=== PATIENT | male | born 1935 | race Caucasian/White ===

== ENCOUNTER 2018-08-06 07:53 | Inpatient (IN) | payer MEDICARE, OTHER ==
[~2018-08-06] VITALS: Ht 170.2 cm; Wt 148.9 kg
[~2018-08-06 07:53] MED LIST: ASPIRIN81 M2 PO; BENAZEPRIL HCL40 MG PO; CEPACOL SORE T1 EAC2 MM; HYDROCODON-ACE1 EAC8 PO; LEVEMIR SUBQ; LOVASTAT10 PO; MULTI-VITAMIN1 EAC5 PO; NEURONTIN 300M300 M2 PO; NORVASC5 M1 PO; NOVOLOG100 UNIT/1 SUBQ; SAW PALMETTO500 MG PO; TRAVATAN Z2.5 ML OPHTHALMIC
[2018-08-06 07:58] VITALS: BP 116/61
[2018-08-06] MEDS ORDERED: OXYCONTIN10 M1 PO (08:20)
[2018-08-06] MEDS ORDERED: LOTENSIN40 MG PO (08:21)
[2018-08-06] MEDS ORDERED: LOVASTATIN 20 M20 MG PO (08:21)
[2018-08-06] MEDS ORDERED: COLACE100 MG PO (08:21)
[2018-08-06] MEDS ORDERED: LATANOPROST 0.2.5 ML OPHTHALMIC (08:21)
[2018-08-06] MEDS ORDERED: METFORMIN HCL500 MG PO (08:21)
[2018-08-06] MEDS ORDERED: FLOMAX0.4 MG PO (08:22)
[2018-08-06] MEDS ORDERED: HUMALOG100 UNIT/1 SUBQ (08:22)
[2018-08-06] MEDS ORDERED: HYDROCHLOROTHIA25 M2 PO (08:22)
[2018-08-06] MEDS ORDERED: NEURONTIN600 MG PO (08:22)
[2018-08-06] MEDS ORDERED: PROSCAR 5MG TABL5 MG PO (08:22)
[2018-08-06] MEDS ORDERED: ASPIRIN81 M2 PO (08:23)
[2018-08-06] MEDS ORDERED: LUTEIN-ZEAXANT1 EAC1 PO (08:23)
[2018-08-06] MEDS ORDERED: COENZYME Q10100 MG PO (08:23)
[2018-08-06] MEDS ORDERED: UNICOMPLEX M TA1 TA1 PO (08:23)
[2018-08-06] MEDS ORDERED: LEVEMIR SUBQ (08:23)
[2018-08-06 08:29] LABS: BE 2.5 mmol/L (-2 to +3); PCO2 56.7 mmHg (35.0-45.0); PO2 63.4 mmHg (75.0-100.0); pH 7.341 (7.340-7.450)
[2018-08-06 08:39] LABS: HEMATOCRIT 49.1 % (42.0-52.0); HEMOGLOBIN 15.9 gm/dL (14.0-18.0); MCH 29.6 pg (26.0-34.0); MCHC 32.3 g/dL (28.0-37.0); MCV 91.6 fL (80.0-100.0); MPV 8.6 fl. (7.2-11.1); NUCLEATED RBCS 0 /100WBC; PLATELET COUNT* 228 thou/uL (150-400); RBC 5.36 mil/uL (4.50-6.00); RDW-CV 15.3 % (10.5-14.5); WBC 12.9 thou/uL (4.0-11.0)
[2018-08-06 08:48] LABS: ANION GAP 6 mmol/L (7-16); BUN 25 mg/dL (7-18); CHLORIDE 100 mmol/L (98-107); CO2 32 mmol/L (21-32); CREATININE 1.3 mg/dL (0.6-1.3); GLUCOSE 144 mg/dL (70-99); POTASSIUM 4.1 mmol/L (3.5-5.1); SODIUM 138 mmol/L (136-145)
[2018-08-06 08:51] LABS: APTT 32.2 Seconds (25.0-31.3); INR 1.1; PROTIME 11.4 Seconds (9.20-11.50)
[2018-08-06 08:59] LABS: ALKALINE PHOSPHATASE 59 U/L (46-116); LIPASE 44 U/L (73-393); MAGNESIUM 1.6 mg/dL (1.8-2.4); NT-PRO BRAIN NAT PEPTIDE 1763 pg/mL (<300); SGOT 16 U/L (15-37); SGPT 15 U/L (30-65); TOTAL BILIRUBIN 0.8 mg/dL (<0.1-1.0); TROPONIN-I LEVEL <0.06 ng/mL (<0.06)
[2018-08-06 10:13] LABS: ABSOLUTE LYMPHOCYTES 0.9 thou/uL (0.8-5.3); ABSOLUTE MONOCYTES 0.9 thou/uL (0.0-1.2); ABSOLUTE NEUTROPHILS 11.1 thou/uL (1.6-8.1)
[2018-08-06 10:15] LABS: MICROCYTES 1+
[2018-08-06 10:16] LABS: PLATELET ESTIMATE ADEQUATE
[2018-08-06 10:29] VITALS: BP 117/50
[2018-08-06 10:40] VITALS: BP 133/65
--- NOTE | 2018-08-06 11:19 | EKG ---
[place] [address] ELECTROCARDIOGRAM REPORT Name: HUBER BETANCOURT Room: [address] ADM IN M.R.#: [id number] Admission: 08/06/18 Attend Phys: Allison Amaro Discharge: Date of : 31 Report #: [id number] THIS REPORT FOR: //name// [facility] ED Test Date: 2018-08-06 Test Time: 08:48:45 Pat Name: HUBER BETANCOURT Department: Room: [facility] Gender: M Director Of Corporate Strategy: : 1935 Requested By: Chester Rosas Order Number: [id number] MD: Saroj Buckley Measurements Intervals [place] Rate: 83 P: 57 [place]: 171 QRS: 59 QRSD: 99 T: 38 QT: 365 QTc: 429 Interpretive Statements Sinus rhythm Borderline low voltage, extremity leads No previous ECG available for comparison Electronically Signed On 08-06-2018 11:19:02 CDT by Saroj Buckley [email or web address] <ELECTRONICALLY SIGNED> By: Saroj Buckley MD, [facility] 08/06/18 1119 7 7 Saroj Buckley MD, [facility] /EPI
[2018-08-06 12:00] VITALS: BP 119/60
[2018-08-06 14:00] VITALS: BP 131/73
--- NOTE | 2018-08-06 17:23 | 2DMMODE ---
[place] [address] 2 D/M-MODE ECHOCARDIOGRAM Name: HUBER BETANCOURT Room: [address] ADM IN [facility]#: [id number] Admission: 08/06/18 Attend Phys: Jossy Martinez Discharge: Date of : 31 Date of Service: 08/06/18 1722 Report #: [id number] THIS REPORT FOR: //name// APPROVED REPORT Study performed: 08/06/2018 15:47:06 EXAM: Comprehensive 2D, Doppler, and color-flow Echocardiogram Patient Location: In-Patient Room #: [facility] Status: routine BSA: 2.63 HR: 74 bpm BP: 117/50 mmHg Rhythm: NSR Other Information Technically limited study due to body habitus, poor endocardial definition. Indications Respiratory failure Echo Enhancing Agent Indication: Endocardial border delineation Agent(s) / Amount(s) Used: Optison 3 cc 2D Dimensions IVSd: 13.27 (7-11mm) LVOT Diam: 20.70 (18-24mm) LVDd: 55.15 mm PWd: 13.00 (7-11mm) Ascending Ao: 37.22 (22-36mm) LVDs: 38.65 (25-40mm) Aortic Root: 36.33 mm Aortic Valve AoV Peak Nino.: 1.83 m/s AO Peak Gr.: 13.40 mmHg LVOT Max P.26 mmHg AO Mean Gr.: 7.12 mmHg LVOT Mean P.72 mmHg LVOT Max V: 1.35 m/s AO V2 VTI: 34.31 cm LVOT Mean V: 0.89 m/s JIAN (VTI): 2.98 cm2 LVOT V1 VTI: 30.32 cm Mitral Valve E/A Ratio: 1.01 MV Decel. Time: 267.12 [place] [address] 2 D/M-MODE ECHOCARDIOGRAM Name: HUBER BETANCOURT Room: [address] ADM IN M.R.#: [id number] Admission: 08/06/18 Attend Phys: Jossy Martinez Discharge: Date of : 31 Date of Service: 08/06/18 1722 Report #: [id number] MV E Max Nino.: 1.41 m/s MV PHT: 77.46 ms MVA (PHT): 2.84 cm2 TDI E/Lateral E': 14.10 E/Medial E': 14.10 Medial E' Nino.: 0.10 m/s Lateral E' Nino.: 0.10 m/s Pulmonary Valve PV Peak Nino.: 0.99 m/s PV Peak Gr.: 3.95 mmHg Tricuspid Valve RAP Estimate: 15.00 mmHg TR Peak Gr.: 56.36 mmHg RVSP: 71.00 mmHg PA Pressure: 71.00 mmHg Left Ventricle The left ventricle is normal size. There is normal LV segmental wall motion. Mild concentric left ventricular hypertrophy. Left ventricular systolic function is normal. The left ventricular ejection fraction is within the normal range. LVEF is 55-60%. Grade III - reversible restrictive diastolic dysfunction. Right Ventricle The right ventricle is normal size. The right ventricular systolic function is normal. Atria The left atrium size is normal. The right atrium size is normal. Aortic Valve Mild aortic valve sclerosis. The aortic valve is not well visualized. No aortic regurgitation is present. There is no aortic valvular stenosis. Mitral Valve There is mitral annular calcification. There is no mitral valve regurgitation noted. No evidence of mitral valve stenosis. Tricuspid Valve The tricuspid valve is normal in structure. Trace tricuspid regurgitation. Severe pulmonary hypertension[place] [address] 2 D/M-MODE ECHOCARDIOGRAM Name: HUBER BETANCOURT Room: [address] IN [facility]#: [id number] Admission: 08/06/18 Attend Phys: Jossy Martinez Discharge: Date of : 31 Date of Service: 08/06/18 1722 Report #: [id number] The pulmonary valve is normal in structure. There is no pulmonic valvular regurgitation. Great Vessels The aortic root is normal in size. IVC is dilated and collapses <50% with inspiration. Pericardium There is no pericardial effusion. <Conclusion> There is normal LV segmental wall motion. LVEF is 55-60%. Mild aortic valve sclerosis. No aortic regurgitation is present. There is no aortic valvular stenosis. No evidence of mitral valve stenosis. There is no mitral valve regurgitation noted. Grade III - reversible restrictive diastolic dysfunction. <ELECTRONICALLY SIGNED> By: Saroj Buckley MD, FACC 08/06/181721 21 21 Saroj Buckley MD, FACC /INF
--- NOTE | 2018-08-06 19:07 | NUR ---
PATINET RESTING IN BED. PATIENT IS BEDREST FO RHTE EVENING. WOUNDS TO GROIN DOCUMENTED, AND PORDERS RECEIVED. VITAL SIGNS STQABLE AND PATINET IN [place] APPARENT SIGNS OF DISTRESS. HOURLY ROUNDING COMPLETED FOR PATIENT SAFETY.
[2018-08-06 20:00] VITALS: BP 124/59
[2018-08-07] VITALS: BP 152/86
[2018-08-07 04:00] VITALS: BP 153/78
--- NOTE | 2018-08-07 05:21 | NUR ---
PATIENT RESTED IN BED, NO ACUTE CHANGES. PATIENT COMPLAIN OF PAIN, DOCTOR NOTIFIED, SEE ORDERS. FALL PRECAUTIONS IN PLACE, CALL LIGHT WITH IN REACH, HOURLY ROUNDING OBSERVED, BED ALARM ON. DOCTOR NOTIFIED OF PATIENT'S BLOOD SUGAR, SEE ORDERS. DOCTOR NOTIFED OF PATIENT REQUEST FOR BIOFREEZE, SEE ORDERS.
[2018-08-07 08:15] VITALS: BP 123/73
--- NOTE | 2018-08-07 11:34 | NUR ---
RECEIVED REPORT FROM ELLI AND ASSUMED CARE OF PT @ 9711.PT IS A/O X4,VSS,TRACING SR ON THE MONITOR.LUNG SOUNDS ARE SLIGHTLY WHEEZY.IV PATENT AND SALINE LOCKED.PT IS CALM AND COOPERATIVE WITH C/O PAIN IN BACK.MEDICATIONS GIVEN WITH RELIEF.PT IS UP WITH MAX ASSIST TO BSC.PT LEFT RESTING IN BED WITH CALL LIGHT AND FALL PRECAUTIONS IN PLACE. WILL CONTINUE TO MONITOR.
[2018-08-07 11:41] VITALS: BP 127/64
--- NOTE | 2018-08-07 14:17 | NUR ---
MET WITH PT, DTR/DEMOND AND SON/HUBER ESCUDERO TO DISCUSS HOME SITUATION/DC PLANNING. PT UP IN CHAIR. STATES HE DOES WELL AT HOME. DEMOND STATES SHE HAS RECENTLY MOVED IN WITH PT TO ASSIST HIM THE MOST HE CAN DO IS AMBULATE A SHORT DISTANCE IN THE HOME AND ASSIST SOME WITH BATH AND DRESSING. HE IS ABLE TO WARM UP FOOD IN [place]. RECENTLY WENT ON HONOR FLIGHT TRIP TO [place], [place] BUT CAME HOME 'SICK' PER SON. SON/HUBER IS DPOA, HAVE ASKED FOR COPY. PT USES WALKER WITH SEAT, HAS WALKIN SHOWER WITH SEAT AND GRAB BARS. DTR AND GRANDDTR ASSIST PT WITH BATHING AND DRESS AND DTR STATES THAT HIS RASH 'GOT AWAY' FROM THEM. ANOTHER GRANDDTR CARES FOR PT'S LEGS AND PUTS ON HIS COMPRESSION STOCKINGS. DTR ASKING FOR ASSIST WTIH BATHING AT HOME. PT HASN'T HAD HH OR BEEN TO SNF. DTR NOT INTERESTED IN PT GOING TO FACILITY, WANT TO TAKE HIM HOME. EXPLAINED HH AND HOMEBOUND STATUS. DTR STATES THEY HAD AN EVAL A FEW MONTHS AGO BUT PT WASN'T HOMEBOUND PER THEM. OFFERED A LIASON TO COME TALK WTIH HER FROM HH HERE, DISCUSSED OPTIONS AND THEY WERE FAMILIAR WITH [facility] ([facility]) CALL TO [facility] AND SHE WILL PLAN TO MEET WITH PT AND DTR/DEMOND GUAMAN AT 1PM PER DTR REQUEST. FAXED REFERRAL OVER TO [facility] OFFICE. WILL FOLLOW
[2018-08-07 16:31] VITALS: BP 147/74
--- NOTE | 2018-08-07 18:29 | NUR ---
VSS,CARDIAC MONITORING IN PLACE WITH NO CHANGES.PT REMAINS ON 5L O2 NC.PAIN MANAGED WELL WITH PO MEDICATIONS.IV PATENT AND SALINE LOCKED.IV ANTIBIOTICS GIVEN.ISOLATION MAINTAINED FOR PENDING FLU SWAB RESULTS.PT RECEIVED MAG CITRATE AND HAD LARGE BM.US VENOUS DOPPLER COMPLETED. PT INFORMED OF PLAN OF CARE AND COMMUNICATES UNDERSTANDING.HOURLY ROUNDING COMPLETED FOR PT SAFETY.CALL LIGHT AND FALL PRECAUTIONS IN PLACE.WILL CONTINUE TO MONITOR FOR DURATION OF SHIFT.
[2018-08-07 20:00] VITALS: BP 144/84
[2018-08-08] VITALS: BP 143/75
[2018-08-08 04:00] VITALS: BP 136/73
--- NOTE | 2018-08-08 04:17 | NUR ---
ASSUMED PT CARE AT 1930. ASSESSMENT COMPLETED CHARTED. ABLE TO MAKE NEEDS KNWON. PT UP MOST OF THE NIGHT, CANT GET COMFORTABLE, GAVE PAIN MEDICATION PER MAR FOR CHRONIC BACK PAIN. UP WITH 2 TO BSC. URINATES FREQUENTLY WITH 150-200 OUT PER TIME. WILL CONTINUE TO MONITOR.
[2018-08-08 05:13] LABS: HEMATOCRIT 51.2 % (42.0-52.0); HEMOGLOBIN 16.1 gm/dL (14.0-18.0); MCH 29.4 pg (26.0-34.0); MCHC 31.4 g/dL (28.0-37.0); MCV 93.5 fL (80.0-100.0); MPV 8.6 fl. (7.2-11.1); RBC 5.47 mil/uL (4.50-6.00); RDW-CV 15.2 % (10.5-14.5); WBC 13.3 thou/uL (4.0-11.0)
[2018-08-08 05:31] LABS: ALBUMIN 2.9 g/dL (3.4-5.0); CALCIUM 8.5 mg/dL (8.5-10.1); CREATININE 1.3 mg/dL (0.6-1.3); POTASSIUM 4.6 mmol/L (3.5-5.1); TOTAL BILIRUBIN 0.4 mg/dL (<0.1-1.0); TOTAL PROTEIN 6.6 g/dL (6.4-8.2)
[2018-08-08 08:00] VITALS: BP 110/65
--- NOTE | 2018-08-08 08:20 | CON ---
[address] [address] CONSULTATION Name: HUBER BETANCOURT Room: [address] ADM IN M.R.#: [id number] Admission: 08/06/18 Attend Phys: Allison Amaro Discharge: Date of : 33 Report #: [id number] THIS REPORT FOR: //name// CC: Jossy Castillo DATE OF SERVICE: 08/07/2018 REQUESTING PHYSICIAN: Dr. Martinez. REASON FOR CONSULTATION: Pneumonia, hypoxemia. DISCUSSION: The patient is a pleasant 83-year-old man who was admitted after presenting to the Emergency Department the morning of 08/06/2018. He has actually gotten ill about a week ago. He had gone on an [place] [facility] to [facility]. Within a day or so after that, he developed what he thought was a cold. He had upper airway congestion. He has been getting progressively more short of breath. He had also developed issues with fungal infection in the genital area. He had had some bleeding from that area as well and seen in the Emergency Department. He was noted to be hypoxic. He was placed on supplemental oxygen. Initial chest x-ray did show some interstitial infiltrates. This followed up with a CT scan of his chest, which revealed bilateral infiltrates. He has been on antibiotics to cover for possible pneumonia. He has had additional evaluation done. Blood gases have also shown some hypercapnia. He is a former smoker quitting several years ago. Had been at least a pack a day smoker in the past. He states that he was told in the past that he may have some COPD. He was on some inhalers for a period of time, but has been off those for a long time. He does not recall having any PFTs done. 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 He does have issues with chronic lymphedema. He does use support stockings and wraps at home. This has been a longstanding issue for him. He also has a history of sleep apnea. He had a UPPP done by Dr. Huber Hummel years ago. He cannot recall if he had a sleep study done after that surgery. He does note that it was beneficial for him. He notes he had been on CPAP prior to that surgery. At home, he was having some cough, but only scant amounts of mucus. Here in the hospital, he has noted some "pink" secretions. No bright red blood. He is not having any actual chest pain. PAST MEDICAL HISTORY: Is as noted above. Also, [place] [address] CONSULTATION Name: HUBER BETANCOURT Room: [address] IN .R.#: [id number] Admission: 08/06/18 Attend Phys: Allison Amaro Discharge: Date of : 33 Report #: [id number] pneumonia and prior viral infections. He has had the Pneumovax and I believe also the Prevnar 13 in the past based on his description. He has a history of diabetes mellitus, the lymphedema, chronic back problems. He sustained fractures of the right ankle as well as tibial fracture. BPH. HOME MEDICATIONS: Insulin, amlodipine, Lotensin, gabapentin, baby aspirin, multivitamins, p.r.n. oxycodone, docusate, eye drops, metformin, hydrochlorothiazide, Proscar, Flomax. He has no inhalers, breathing treatments or O2 at home. SOCIAL HISTORY: Former smoker as noted. 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 Served in the [employer]. FAMILY HISTORY: Reviewed and unremarkable. REVIEW OF SYSTEMS: A 12-point ROS was done. Note positives as above. He denies any recent falls. He had lost some weight, but has gained additional weight back. He has a chronic lower extremity edema. Had developed the yeast infection in his genital area. He was using a vitamin E cream at home. He denies any difficulty swallowing. He has not had any nausea or vomiting. Denies any diarrhea. Has a chronic lower extremity edema is noted. PHYSICAL EXAMINATION: GENERAL: An obese man. He is resting in bed. HEENT: Head is normocephalic. Sclerae nonicteric. Mucous membranes do look moist. NECK: Large, but supple. No JVD is noted. HEART: Heart tones are distant, but appear regular. LUNGS: Reveal breath sounds to be mildly diminished in part due to his large body habitus. Few faint crackles are heard. No wheezing. Excursion is equal. ABDOMEN: Very obese, but soft. Does not appear to have any guarding or rebound tenderness. GENITOURINARY: Area was not evaluated. EXTREMITIES: Lower extremities, he does have edema noted. SCDs in place. NEUROLOGIC: He is alert and oriented x 3. Moving all extremities. LABORATORY AND X-RAY FINDINGS: Chest x-ray does show some mild cardiomegaly and prominence of interstitial markings. CT angiogram done of his chest was negative for PE. He does have bilateral infiltrates. These are perihilar primarily. No significant pleural effusions noted. No adenopathy. Echocardiogram done yesterday was technically difficult given his body habitus. Appears to have LVH. Systolic function normal with an EF of 55-60%. Did have grade 3 diastolic dysfunction. RV was normal. No mitral regurgitation was noted. He is also thought to have severe pulmonary hypertension with an estimated PA pressure of 71 mmHg. On his chemistry yesterday, bicarbonate is 32, BUN 25, creatinine 1.3, potassium is 4.1. [place] [address] CONSULTATION Name: HUBER BETANCOURT Room: [address] IN M.R.#: [id number] Admission: 08/06/18 Attend Phys: Allison Amaro Discharge: Date of : 33 Report #: [id number] Transaminases unremarkable. Magnesium 1.6. Albumin 3.0. ProBNP 1763. White blood cell count 12,900, hemoglobin 15.9, hematocrit 49.1, platelets are normal. Arterial blood gases done yesterday on 4 liters, she had a pH of 7.34, pCO2 of 57, pO2 of 63, bicarbonate is 30 with a saturation of 88%. Carboxyhemoglobin was 4.4%. Blood cultures have been sent. Urine culture for Legionella antigen and Strep pneumonia antigen is pending. IMPRESSION: 1. Acute respiratory failure superimposed on chronic respiratory failure. 2. Bilateral infiltrates, suspect pneumonia. May have started with a viral infection. 3. Underlying chronic obstructive pulmonary disease, severity unknown. He has not been on any treatment for that recently. 4. Hypercapnia. Some of this does appear chronic. He does have a history of sleep apnea, though has had uvulopalatopharyngoplasty. It is possible it still may not have completely corrected his problem. Could have a component of obesity hypoventilation syndrome as well as underlying chronic obstructive pulmonary disease. 5. Recent diagnosis of diabetes mellitus. 6. Probable chronic kidney disease. 7. Morbid obesity. 8. History of lymphedema. It is possible some of this could be related to his pulmonary hypertension. 9. Pulmonary hypertension, noted on echocardiogram. Could be related to his diastolic dysfunction. Also from chronic obstructive pulmonary disease and perhaps untreated obstructive sleep apnea. Does not appear to have pulmonary embolism. RECOMMENDATIONS: 1. Continue antibiotics and nebulizer treatments. 2. Follow up chest x-ray tomorrow. 3. Should be able to begin decreasing his IV Solu-Medrol. 4. Follow up blood gases tomorrow. 5. We will check TSH. 6. Reassess O2 needs prior to discharge. May need O2 at home at least at night. 7. Consider followup sleep study in the future once he is over this acute event. 8. May also need full PFTs once he is over this acute event. 9. We will also check respiratory viral panel. <ELECTRONICALLY SIGNED> By: Lizzy Mayes MD 08/08/18 0820 1125 [id number] Mayes MD /nt
[2018-08-08 08:39] LABS: BE 4.1 mmol/L (-2 to +3); HCO3 33.2 mmol/L (22.0-26.0); PO2 77.6 mmHg (75.0-100.0); pH 7.303 (7.340-7.450)
--- NOTE | 2018-08-08 08:42 | NUR ---
RE: insulin glulisine. Request from RN for insulin gluslisine entered by night pharmacist. Communicated it is not available at this facility. No protocol substitute (informed that lispro insulin is closest available option, but physician would need to approve. RN acknowledged).
[2018-08-08 08:44] LABS: PCO2 68.5 mmHg (35.0-45.0)
[2018-08-08 11:35] VITALS: BP 131/55
--- NOTE | 2018-08-08 12:06 | CON ---
[address] [address] CONSULTATION Name: HUBER BETANCOURT Room: [address] IN M.R.#: [id number] Admission: 08/06/18 Attend Phys: Allison Amaro Discharge: Date of : 33 Report #: [id number] THIS REPORT FOR: //name// CC: Jossy Castillo DATE OF SERVICE: 08/07/2018 INFECTIOUS DISEASE CONSULTATION ATTENDING PHYSICIAN: Dr. Martinez. REASON FOR EVALUATION: Extensive inflammatory eruption involving the underside of the large pannus extending to the perineal area in addition to respiratory failure secondary to exacerbation of COPD and probable lower respiratory tract infection. HISTORY OF PRESENT ILLNESS: Chart reviewed, patient examined. This is an 83-year-old, with history of diabetes mellitus, also a smoker, certainly raises question of COPD, was admitted with progressive dyspnea with productive cough, congestion. He did note he acquired pneumonia on a [place] [facility], perhaps more worrisome to him. He developed inflammatory, burning type painful rash with pruritus involving his perineal area and to side of his large pannus with associated odor. It is not clear if he has had significant fevers. Denies other GI related complaints. He was empirically started on therapy with levofloxacin for suspected respiratory tract infection as well as given a dose of ceftriaxone and fluconazole as well as topical antifungal. His initial oxygen requirements were 8 liters, now down to 5 liters per nasal cannula. He is lucid. ALLERGIES: TRAMADOL. CURRENT MEDICATIONS: Include methylprednisolone 40 mg q. 12, furosemide, insulin, tamsulosin, finasteride, hydrochlorothiazide, multivitamin, oxycodone, gabapentin, aspirin, levofloxacin, ipratropium and albuterol inhaler. PAST MEDICAL HISTORY: Diabetes mellitus, likely some degree of chronic obstructive pulmonary disease, pulmonary hypertension, obstructive sleep apnea, lymphedema. SOCIAL HISTORY: Former smoker, occasional ethanol. FAMILY HISTORY: Noncontributory. REVIEW OF SYSTEMS: [place] [address] CONSULTATION Name: HUBER BETANCOURT Room: [address] IN M.R.#: [id number] Admission: 08/06/18 Attend Phys: Allison Amaro Discharge: Date of : 33 Report #: [id number] PHYSICAL EXAMINATION: GENERAL: He is alert. He is in mild to moderate distress. He is morbidly obese, appears somewhat chronically ill. VITAL SIGNS: Temperature 97.5, pulse 72, respirations 20, blood pressure 127/64. SKIN: Warm. Multiple nevi skin lesions including the extent of the scalp. NECK: Supple. LUNGS: Some wheezes with scattered coarse breath sounds. HEART: Regular. I do not appreciate any murmur, although it is distant. ABDOMEN: Obese, has extensive pannus. There are no peritoneal signs. On exam, there is no significant pain. It was lifted to the underside showed extensive erythrodermic type eruptions certainly consistent with candidiasis. There were satellite lesions extending throughout the course of the perineal area as well as the underside of the pannus. I do not appreciate any ulcerations at this point, no bullous lesions. GENITOURINARY: Deferred. RECTAL: Deferred. LABORATORY DATA: His recent glucose of 427. TSH 1.008. Blood cultures sterile thus far. Echo, no significant dysfunction, EF of 55-60%. CTA of the chest PE protocol, patchy perihilar infiltrates. CBC: White count of 12.9, H and H 15.9 and 49.1, platelets of 228. Electrolytes: Sodium 138, potassium 4.1, chloride 100, bicarbonate is 32, anion gap of 6, BUN and creatinine 25 and 1.3, glucose of 144. LFTs unremarkable. Albumin of 3.0, total protein 7.0. Estimated GFR of 52. Lactic acid 1.4. PT of 11.4, INR 1.1. ABGs: pH 7.341, pCO2 of 56.7, pO2 of 63.4 on 4 liters. ASSESSMENT: Probable lower respiratory tract infection in the setting of underlying chronic obstructive pulmonary disease. I think it is reasonable to continue empiric antibacterial therapy to see if resistant parameters have improved in terms of the oxygen requirements. I do not think there is any sputum forthcoming. As long as he is on the antibacterial certainly at risk for exacerbation of any sort of candidiasis. We will continue fluconazole on a daily basis, local care and topical antifungal as well. Wound care is following. Discussed with the patient's family. <ELECTRONICALLY SIGNED> By: Jet Salgado MD 08/08/18 1206 1531 [id number] Salgado MD /hernandez
--- NOTE | 2018-08-08 13:12 | NUR ---
PT ALERT AND ORIENTED. VSS ON 5L AT START OF SHIFT. PLACED ON BIPAP AT APPROX 1100 AND TOLERATING WELL. INNER THIGHS/PANNUS/SYDNIE AREA RED AND MOIST- POWDER APPLIED PER EMAR. X1 BM THIS SHIFT, UO AFEQUATE. CALL LIGHT IN REACH. PT AND FAMILY EDUCATED ON SAFETY AND PLAN OF CARE. PLEASE SEE ASSESSMENT FOR ADDITIONAL INFORMATION. WILL CONTINUE TO MONITOR.
--- NOTE | 2018-08-08 13:34 | NUR ---
[facility] WITH [facility] ([facility]) HER TO SEE THE PATIENT WITH [facility] WAITER/WAITRESS TAVERN. [facility] MET WITH THE PATIENT AND DTR AND INFORM THAT [facility] IS ABLE TO ACCEPT THR PATIENT AT D/C FOR HH SERVICES. ORDERS FOR HH TO INCLUDE A WAITER/WAITRESS TAVERN WILL NEED TO BE FAXED TO [facility] AT D/C. CM WILL REMAIN AVAILABLE TO ASSIST AND FOLLOW NEEDED.
[2018-08-08 16:23] VITALS: BP 140/70
--- NOTE | 2018-08-08 18:32 | NUR ---
PT TOLERATING BIPAP THROUGHOUT SHIFT. DENIES CP AND SOA. ASSESSMENT REMAINS UNCHANGED THROUGHOUT SHIFT. WILL CONT TO MONITOR
[2018-08-08 20:00] VITALS: BP 147/72
[2018-08-08 21:13] LABS: GLYCOHEMOGLOBIN (HGB A1C) 7.6 % (4.8-5.6)
[2018-08-09] VITALS (7 sets, daily range): BP systolic 137–155; BP diastolic 63–88
--- NOTE | 2018-08-09 01:58 | NUR ---
ASSUMED CARE OF PATIENT AT 1900. VSS, AFEBRILE. UP TO BSC SEVERAL TIMES TO VOID, IS BECOMING LESS DEPENDENT. LASIX GIVEN, URINE OUPUT ADEQUATE. CALLS OUT APPROPRIATELY. DENIES PAIN. DOES STATE HE CAN'T TOLERATE THE BIPAP. ON 6L NASAL CANNULA. PROGRESSING SLOWLY TOWARDS POC GOALS.
[2018-08-09 05:07] LABS: ALBUMIN 2.9 g/dL (3.4-5.0); CALCIUM 9.2 mg/dL (8.5-10.1); CREATININE 1.2 mg/dL (0.6-1.3); TOTAL BILIRUBIN 0.4 mg/dL (<0.1-1.0)
[2018-08-09 10:27] LABS: PCO2 64.8 mmHg (35.0-45.0)
[2018-08-09 10:28] LABS: BE 7.3 mmol/L (-2 to +3); HCO3 35.8 mmol/L (22.0-26.0); PO2 84.1 mmHg (75.0-100.0)
--- NOTE | 2018-08-09 12:03 | NUR ---
RECEIVED REPORT FROM DEBORAH AND ASSUMED CARE OF PT @ 4290.PT A/O X4,VSS,TRACING SB ON THE MONITOR.ASSESSMENT CHARTED.IV REMOVED DUE TO INFILTRATION.NEW IV INSERTED IN RIGHT HAND.IV ANTIBIOTICS GIVEN.ISOLATION REMOVED PER DOCTOR ORDERS.PT IS CALM AND COOPERATIVE WITH C/O PAIN IN BACK-RELIEF GIVEN WITH MEDICATIONS.PT IS UP WITH ONE ASSIST TO BSC.PT LEFT RESTING IN BED WITH CALL LIGHT AND FALL PRECAUTIONS IN PLACE.WILL CONTINUE TO MONITOR.
--- NOTE | 2018-08-09 12:35 | NUR ---
Nutrition: Pt admitted with respiratory failure. Assessed for BMI 55.9. Pt doesn't tolerate bipap; on 6L NC. RX: insulin, solumedrol, MVI. Labs: BG 299, albumin 2.9. Wt: 357#. Heart Healthy diet with a CHO count. Pt is 83 y/o. No nutrition interventions needed at this time.
--- NOTE | 2018-08-09 13:34 | NUR ---
CONTINUE TO FOLLOW, MET WITH PT'S SON/HUBER. THEY ARE AGREEABLE TO GO HOME WITH [facility] AT OR. DISCUSSED TRILOGY, PT IS AGREEABLE. CALLED AND FAXED REFERRAL TO [facility]. NO DC DATE KNOWN YET
--- NOTE | 2018-08-09 17:11 | NUR ---
VSS,CARDIAC MONITORING IN PLACE WITH NO CHANGES.PT REMAINS ON 5L O2 NC AND BIPAP WHILE SLEEPING.PT PROGRESSING TOWARDS GOALS.PAIN MANAGED WELL WITH PO MEDICATIONS.NEW IV INSERTED.IV ANTIBIOTICS GIVEN.PT HAS BEEN UP TO BSC MULTIPLE TIMES THIS SHIFT WITH ONE ASSIST.BREATHING TREATMENTS GIVEN.HOURLY ROUNDING COMPLETED FOR PT SAFETY.CALL LIGHT AND FALL PRECAUTIONS IN PLACE.WILL CONTINUE TO MONITOR.
--- NOTE | 2018-08-09 22:25 | NUR ---
ASSUMED PT CARE AOX4 .SBRADY. 8 RUNS OF VTACH. NO CARDIO CONSULT. MAG LEVEL 23 . MAG LAB ORDERED . AWAITNG LEVEL BACK. THEN WILL CONTACT PHYSICIAN.
[2018-08-10] VITALS: BP 148/77
[2018-08-10 02:06] LABS: ADENOVIRUS Negative (Negative); INFLUENZA A Negative (Negative); INFLUENZA B Negative (Negative); METAPNEUMOVIRUS Negative (Negative); PARAINFLUENZA 1 Negative (Negative); PARAINFLUENZA 2 Negative (Negative); PARAINFLUENZA 3 Negative (Negative); RHINOVIRUS Negative (Negative); RSV A Negative (Negative); RSV B Negative (Negative)
[2018-08-10 04:00] VITALS: BP 144/70
[2018-08-10 05:35] LABS: CALCIUM 9.7 mg/dL (8.5-10.1); CREATININE 1.1 mg/dL (0.6-1.3); POTASSIUM 4.1 mmol/L (3.5-5.1)
--- NOTE | 2018-08-10 07:35 | NUR ---
PT CARDIAC RYTHM HAD BEEN STABLE SINCE THE EIGHT RUNS OF VTACH LAST NIGHT. PT IS STABLE, ADN VSS.MAG LEVEL WAS 2.2. CARDIO CALLED THIS AM. MESSAGE LEFT TO ANSWERING SERVICE.
[2018-08-10 08:00] VITALS: BP 153/72
[2018-08-10 12:00] VITALS: BP 140/67
--- NOTE | 2018-08-10 14:01 | NUR ---
PT PLACED ON BIPAP FOR A NAP
[2018-08-10 16:00] VITALS: BP 141/70
--- NOTE | 2018-08-10 18:36 | NUR ---
vss, asusmed care in the am, assessment performed and charted, FALL PRECAUTINS IN PLACE AND CALL LIGHT IN REACH, PT IS A&O4 AND UP WITH ONE TO BSC, HE IS TRACING SR ON THE MONITOR, WEAR 4L NC AND STATES PAIN IN HIS LOWER BACK, PT IS TO WEAR BIPAP AT HS, HE HAS BEEN UP IN CHAIR FOR A BIT, HOURLY ROUNDS COMPLETED AND WILL FOLLOW WITH P[DEMARIO OF CARE. BS HAVE COME DOWN AND WILL FOLLOW WITH ORDERS,
[2018-08-11] VITALS (7 sets, daily range): BP systolic 118–140; BP diastolic 47–79
--- NOTE | 2018-08-11 06:55 | NUR ---
RECEIVED REPORT AND ASSUMED CARE AT 1930. VSS. CARDIAC MONITORING IN PLACE. ASSESSMENT COMPLETED CHARTED. DISCUSSED PLAN OF CARE WITH PT, VERBALIZED UNDERSTANDING. PT UP WITH ASSIST WITH WALKER, ON 3L NC. HOURLY ROUNDING COMPLETED AND ALL NEEDS MET. BED LOCKED IN LOWEST POSITION, CALL LIGHT WITHIN REACH. NUSRING WILL CONTINUE TO MONITOR
--- NOTE | 2018-08-11 14:14 | NUR ---
VSS, ASSUMED CARE IN THE AM, ASSESSMENT PERFORMED AND CHARTED, FALL PRECAUTIONS IN PLACE AND CALL LIGHT IN REACH, PT IS A&O4 AND IS ON 3L NC, AND IS TRACING SR ON THE MONITOR, PT GOAL IS TO SIT UP IN CHAIR AND WORK WITH PT/OT AND IMPROVE BREATHING, WILL FOLLOW WITH PLAN OF CARE AND HOURLY ROUNDS.
[2018-08-12] VITALS (7 sets, daily range): BP systolic 104–133; BP diastolic 53–73
[2018-08-12 04:57] LABS: ABSOLUTE BASOPHILS 0.1 thou/uL (0.0-0.2); ABSOLUTE EOSINOPHILS 0.1 thou/uL (0.0-0.7); ABSOLUTE LYMPHOCYTES 1.6 thou/uL (0.8-5.3); ABSOLUTE MONOCYTES 1.3 thou/uL (0.0-1.2); ABSOLUTE NEUTROPHILS 12.8 thou/uL (1.6-8.1); BASOPHILS 0.4 %; EOSINOPHILS 0.5 %; HEMATOCRIT 54.9 % (42.0-52.0); HEMOGLOBIN 17.4 gm/dL (14.0-18.0); LYMPHOCYTES 10.2 %; MCH 29.2 pg (26.0-34.0); MCHC 31.7 g/dL (28.0-37.0); MCV 92.2 fL (80.0-100.0); MONOCYTES 8.2 %; MPV 8.2 fl. (7.2-11.1); NUCLEATED RBCS 0 /100WBC; PLATELET COUNT* 292 thou/uL (150-400); POLYS 80.7 %; RBC 5.96 mil/uL (4.50-6.00); RDW-CV 14.9 % (10.5-14.5); WBC 15.9 thou/uL (4.0-11.0)
[2018-08-12 05:16] LABS: CALCIUM 9.2 mg/dL (8.5-10.1); CREATININE 1.3 mg/dL (0.6-1.3)
--- NOTE | 2018-08-12 06:13 | NUR ---
ASSUMED CARE OF PT AT 1930. VSS. 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 COMPLAINTS OF BACK PAIN. ASSESSMENT COMPLETED CHARTED. DISCUSSED PLAN OF CARE FOR THE EVENING. VERBALIZED UNDERSTANDING. UP WITH ASSSIST X 1. ON 3L NC. BED LOCKED IN LOWEST POSITION AND CALL LIGHT WITHIN REACH. HOURLY ROUNDING COMPLETED. ALL NEEDS MET. NURSING WILL CONTINUE TO MONITOR.
[2018-08-12 10:12] LABS: BE 13.7 mmol/L (-2 to +3); PO2 84.4 mmHg (75.0-100.0); pH 7.418 (7.340-7.450)
[2018-08-12 10:14] LABS: HCO3 42.7 mmol/L (22.0-26.0); PCO2 67.6 mmHg (35.0-45.0)
--- NOTE | 2018-08-12 12:00 | NUR ---
DISCUSSED WITH OMKAR RUBIO AND ANASTACIO, TENTATIVE DC TOMORROW. MET WITH PT AND FAMILY, TRILOGY TO BE DELIVERED TO ROOM TODAY BY [facility]. PT TO WEAR TONIGHT. MAY NEED HOME O2 AND NEB ALSO. PT STILL WANTS TO USE [facility]. WILL FINALIZE DC WHEN ORDERS RECEIVED.
--- NOTE | 2018-08-12 18:14 | NUR ---
PATIENT PROGRESSING TOWARDS GOALS. PAIN CONTROLLED WITH PRN PAIN MEDICATION. CONTINUES TO WEAR O2 AT 3L NC. TRILOGY BROUGHT TO PATIENTS ROOM. HE IS UP STANDBY ASSIST IN HIS ROOM WITH A WALKER. VOIDING CLEAR YELLOW URINE TO DEPENDENT DRAIN. PLANNING FOR DC TO HOME TOMORROW IF STABLE. HOURLY ROUNDING CHARTED. BED ALARM ON. CALL LIGHT WITHIN REACH. WILL CONTINUE TO MONITOR.
[2018-08-13] VITALS: BP 115/57
[2018-08-13 04:00] VITALS: BP 128/58
[2018-08-13 04:57] LABS: CALCIUM 9.4 mg/dL (8.5-10.1); CREATININE 1.3 mg/dL (0.6-1.3); POTASSIUM 3.8 mmol/L (3.5-5.1)
--- NOTE | 2018-08-13 06:47 | NUR ---
ASSUMED CARE OF PT AT 1930. VSS. 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 COMPAINTS OF BACK PAIN. ASSESSMENT COMPLETED CHARTED. DISCUSSED PLAN OF CARE FOR THE EVENING. VERBALIZED UNDERSTANDING. UP WIHT ASSIST X ONE ON 3L NC. BED LOCKED IN THE LOWEST POSITION AND CALL LIGHT WITHIN REACH. HOURLY ROUNDING COMPLETED. ALL NEEDS MET. NURSING WILL CONTINUE TO MONITOR.
[2018-08-13 07:30] VITALS: BP 116/58
[2018-08-13 11:58] VITALS: BP 105/67
[2018-08-13] MEDS ORDERED: NYAMYC15 GM TOP (15:13)
[2018-08-13] MEDS ORDERED: IPRAT-ALBUT 0.5-3 ML INH (15:15)
[2018-08-13] MEDS ORDERED: CEPACOL SORE T1 EAC7 PO (15:16)
--- NOTE | 2018-08-13 15:48 | NUR ---
ORDERS RECEIVED FOR DC HOME WITH HH, NEEDS O2 WITH ACTIVITY AND NEBULIZER. PT ALREADY HAS TRILOGY THRU [facility]. SON ASKED THAT [facility] BE USED FOR O2. CALLED AND FAXED REFERRAL FOR O2 AND NEBULIZER TO [facility]. SHE ARRANGED FOR T[facility] TO BE DELIVERED, REST OF EQUIPMENT WILL BE DELIVERED TO HOME. PT AND SON MADE AWARE. SET UP HH THRU [facility]. FAXED ORDERS TO [facility]. ANSWERED QUESTIONS OF PT/SON/DTR. THEY WILL PROVIDE TRANSPORT HOME.
[2018-08-13] MEDS ORDERED: LEVAQUIN 500 M500 M2 PO (15:58)
[2018-08-13] MEDS ORDERED: CARVEDILOL3.125 MG PO (15:58)
[2018-08-13] MEDS ORDERED: PREDNISONE 10 M10 MG PO (15:59)
[2018-08-13] MEDS ORDERED: DIFLUCAN200 MG PO (16:00)
== END 2018-08-13 16:10 | disposition home health service (06) | DRG 871 ==
LOC: M.ERS 07:53 → M.TBA-ER 09:31 → M.2W 09:31
PROVIDERS: Family Medicine; Internal Medicine Pulmonary Disease; ADMIT Internal Medicine
PROC: 5A09357 Assistance with Respiratory Ventilation, Less than 24 Consecutive Hours, Continuous Positive Airway Pressure (ICD-10-PCS; principal; 2018-08-08)
PROC: 5A09357 Assistance with Respiratory Ventilation, Less than 24 Consecutive Hours, Continuous Positive Airway Pressure (ICD-10-PCS; 2018-08-09)
PROC: 5A09357 Assistance with Respiratory Ventilation, Less than 24 Consecutive Hours, Continuous Positive Airway Pressure (ICD-10-PCS; 2018-08-10)
PROC: 5A09357 Assistance with Respiratory Ventilation, Less than 24 Consecutive Hours, Continuous Positive Airway Pressure (ICD-10-PCS; 2018-08-11)
PROC: 5A09357 Assistance with Respiratory Ventilation, Less than 24 Consecutive Hours, Continuous Positive Airway Pressure (ICD-10-PCS; 2018-08-12)
PROC: 5A09357 Assistance with Respiratory Ventilation, Less than 24 Consecutive Hours, Continuous Positive Airway Pressure (ICD-10-PCS; 2018-08-13)
DX: A41.9 Sepsis, unspecified organism (principal); I50.33 Acute on chronic diastolic (congestive) heart failure; J96.21 Acute and chronic respiratory failure with hypoxia; J96.22 Acute and chronic respiratory failure with hypercapnia; B37.1 Pulmonary candidiasis; J15.9 Unspecified bacterial pneumonia; J44.1 Chronic obstructive pulmonary disease with (acute) exacerbation; J44.0 Chronic obstructive pulmonary disease with (acute) lower respiratory infection; Z68.43 Body mass index [BMI] 50.0-59.9, adult; I13.0 Hypertensive heart and chronic kidney disease with heart failure and stage 1 through stage 4 chronic kidney disease, or unspecified chronic kidney disease; E66.2 Morbid (severe) obesity with alveolar hypoventilation; I47.1 Supraventricular tachycardia; B35.6 Tinea cruris; E11.22 Type 2 diabetes mellitus with diabetic chronic kidney disease; E11.65 Type 2 diabetes mellitus with hyperglycemia; I27.20 Pulmonary hypertension, unspecified; N18.3 Chronic kidney disease, stage 3 (moderate); Z99.81 Dependence on supplemental oxygen; Z87.891 Personal history of nicotine dependence; Z79.82 Long term (current) use of aspirin; Z79.4 Long term (current) use of insulin; Z79.899 Other long term (current) drug therapy; Z88.8 Allergy status to other drugs, medicaments and biological substances; Z23 Encounter for immunization

== ENCOUNTER → 2019-12-04 | Outpatient (CLI) | payer MEDICARE, OTHER ==
[~2019-12-04] MED LIST changes: +ALEVE220 MG PO; +BETA-VAL 0.1% O45 GM TOP; +BUMEX2 MG PO; +CARVEDILOL3.125 MG PO; +CEPACOL SORE T1 EAC7 PO; +COENZYME Q10100 MG PO; +COLACE100 MG PO; +DIFLUCAN200 MG PO; +FLOMAX0.4 MG PO; +FLONASE 0.05%50 MCG NARES; +FLORASTOR250 MG PO; +GABAPENTIN600 M1 PO; +GLUCOPHAGE1000 MG PO; +HUMALOG100 UNIT/1 SUBQ; +HYDROCHLOROTHIA25 M2 PO; +IPRAT-ALBUT 0.5-3 ML INH; +LATANOPROST 0.2.5 ML OPHTHALMIC; +LEVAQUIN 500 M500 M2 PO; +LEVEMIR FL100 UNIT/2 SUBQ; +LOTENSIN40 MG PO; +LOVASTATIN 20 M20 MG PO; +LUTEIN-ZEAXANT1 EAC1 PO; +METFORMIN HCL500 MG PO; +NEURONTIN600 MG PO; +NYAMYC15 GM TOP; +OXYCONTIN10 M1 PO; +OXYCONTIN20 M1 PO; +PREDNISONE 10 M10 MG PO; +PROSCAR 5MG TABL5 MG PO; +SENNA PLUS TAB1 EACH PO; +UNICOMPLEX M TA1 TA1 PO; +ZANTAC 150MG T150 M1 PO
== END ==
LOC: M.MRI 13:30
DX: S83.512A Sprain of anterior cruciate ligament of left knee, initial encounter (principal); M17.12 Unilateral primary osteoarthritis, left knee; M25.762 Osteophyte, left knee; M22.42 Chondromalacia patellae, left knee; M25.462 Effusion, left knee; X58.XXXA Exposure to other specified factors, initial encounter; Y93.89 Activity, other specified; Y92.89 Other specified places as the place of occurrence of the external cause; Y99.8 Other external cause status

== ENCOUNTER → 2019-12-04 | Outpatient (CLI) | payer MEDICARE, OTHER ==
[~2019-12-04] VITALS: Ht 170.2 cm; Wt 137.9 kg
[2019-12-04 09:21] LABS: ABSOLUTE BASOPHILS 0.1 thou/uL (0.0-0.2); ABSOLUTE EOSINOPHILS 0.3 thou/uL (0.0-0.7); ABSOLUTE LYMPHOCYTES 1.7 thou/uL (0.8-5.3); ABSOLUTE MONOCYTES 0.6 thou/uL (0.0-1.2); ABSOLUTE NEUTROPHILS 4.6 thou/uL (1.6-8.1); BASOPHILS 0.7 %; EOSINOPHILS 4.6 %; HEMATOCRIT 44.4 % (42.0-52.0); HEMOGLOBIN 14.8 gm/dL (14.0-18.0); LYMPHOCYTES 22.8 %; MCH 30.1 pg (26.0-34.0); MCHC 33.2 g/dL (28.0-37.0); MCV 90.7 fL (80.0-100.0); MONOCYTES 8.5 %; MPV 8.4 fl. (7.2-11.1); NUCLEATED RBCS 0 /100WBC; PLATELET COUNT* 294 thou/uL (150-400); POLYS 63.4 %; WBC 7.3 thou/uL (4.0-11.0)
[2019-12-04 09:35] LABS: APTT 37.1 Seconds (25.0-31.3); PROTIME 10.5 Seconds (9.20-11.50)
[2019-12-04 09:36] LABS: ALBUMIN 3.6 g/dL (3.4-5.0); CREATININE 1.1 mg/dL (0.6-1.3); POTASSIUM 4.3 mmol/L (3.5-5.1); TOTAL BILIRUBIN 0.5 mg/dL (<0.1-1.0); TOTAL PROTEIN 7.8 g/dL (6.4-8.2)
[2019-12-04 10:19] LABS: ESR (SEDRATE) 9 mm/hr (0-20)
[2019-12-04 23:09] LABS: GLYCOHEMOGLOBIN (HGB A1C) 7.7 % (4.8-5.6)
--- NOTE | 2020-01-23 10:51 | EKG ---
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: : 1935 Requested By: Simon Potts Order Number: [id number] Reading MD: Tree Lay Measurements Intervals [place] Rate: 76 P: 95 [place]: 176 QRS: 78 QRSD: 103 T: 41 QT: 369 QTc: 415 Interpretive Statements Sinus rhythm Ventricular premature complex Low voltage, precordial leads Baseline wander in lead(s) I Compared to ECG 08/06/2018 08:48:45 Ventricular premature complex(es) now present Electronically Signed On 12-04-2019 11:21:33 PETS SALESPERSON by Tree Lay [email or web address] <ELECTRONICALLY SIGNED> By: Tree Lay MD, FACC 12/04/19 1121 2 Tree Lay MD, [facility] /EPI
== END ==
LOC: M.LAB 08:00 → M.PRE 12-15 08:06 → EDSTATUS 12-15 10:00 → M.PRE 12-15 10:53
PROVIDERS: ATTEND Orthopaedic Surgery
DX: Z01.818 Encounter for other preprocedural examination (principal); M17.12 Unilateral primary osteoarthritis, left knee

== ENCOUNTER → 2019-12-10 | Outpatient (CLI) | payer MEDICARE, OTHER ==
--- NOTE | 2019-12-10 14:07 | 2DMMODE ---
[place] [address] 2 D/M-MODE ECHOCARDIOGRAM Name: HUBER BETANCOURT V Room: [facility]#: [id number] Admission: 12/10/19 Attend Phys: Gloria Atwood, Discharge: Date of : 31 Date of Service: 12/10/19 1405 Report #: [id number] THIS REPORT FOR: cc: Manuel Castillo MD, Vinod N. MD Blick, David R. MD [facility] ~ APPROVED REPORT Study performed: 12/10/2019 12:39:00 EXAM: Comprehensive 2D, Doppler, and color-flow Echocardiogram Patient Location: Out-Patient BSA: 2.31 HR: 72 bpm BP: 120/60 mmHg Other Information Study Quality: Fair Indications Dyspnea Hypertension/HDD 2D Dimensions IVSd: 12.65 (7-11mm) LVOT Diam: 20.51 (18-24mm) LVDd: 53.16 mm PWd: 12.13 (7-11mm) Ascending Ao: 36.25 (22-36mm) LVDs: 26.71 (25-40mm) Aortic Root: 28.54 mm Volumes Left Atrial Volume (Systole) LA ESV Index: 25.30 mL/m2 Aortic Valve AoV Peak Nino.: 1.88 m/s AO Peak Gr.: 14.17 mmHg LVOT Max P.74 mmHg AO Mean Gr.: 8.55 mmHg LVOT Mean P.45 mmHg LVOT Max V: 1.30 m/s AO V2 VTI: 41.19 cm LVOT Mean V: 0.86 m/s JIAN (VTI): 2.64 cm2 LVOT V1 VTI: 32.86 [place] [address] 2 D/M-MODE ECHOCARDIOGRAM Name: HUBER BETANCOURT V [id number] Admission: 12/10/19 Attend Phys: Gloria Atwood, Discharge: Date of : 31 Date of Service: 12/10/19 1405 Report #: [id number] E/A Ratio: 0.72 MV Decel. Time: 296.29 ms MV E Max Nino.: 0.79 m/s MV PHT: 85.92 ms MVA (PHT): 2.56 cm2 TDI E/Lateral E': 11.29 E/Medial E': 13.17 Medial E' Nino.: 0.06 m/s Lateral E' Nino.: 0.07 m/s Pulmonary Valve PV Peak Nino.: 1.07 m/s PV Peak Gr.: 4.60 mmHg Tricuspid Valve RAP Estimate: 5.00 mmHg TR Peak Gr.: 26.77 mmHg RVSP: 31.77 mmHg PA Pressure: 31.77 mmHg Left Ventricle The left ventricle is normal size. endocardium was not well visualized Mild concentric left ventricular hypertrophy. Left ventricular systolic function is normal. The left ventricular ejection fraction is within the normal range. LVEF is 60-65%. Grade I - abnormal relaxation pattern. Right Ventricle The right ventricle is normal size. The right ventricular systolic function is normal. Atria The left atrium size is normal. The right atrium size is normal. Aortic Valve Aortic valve is mildly calcified. Trace aortic regurgitation. There is no aortic valvular stenosis. Mitral Valve Mild mitral annular calcification. There is no mitral valve regurgitation noted. No evidence of mitral valve stenosis. Tricuspid Valve The tricuspid valve is normal in structure. Mild tricuspid regurgitation. estimated pa pressure 40 [place] [address] 2 D/M-MODE ECHOCARDIOGRAM Name: HUBER BETANCOURT V Room: [facility]#: [id number] Admission: 12/10/19 Attend Phys: Glroia Atwood, Discharge: Date of : 31 Date of Service: 12/10/19 1405 Report #: [id number] Pulmonic Valve The pulmonary valve is normal in structure. There is no pulmonic valvular regurgitation. Great Vessels The aortic root is normal in size. IVC is normal in size and collapses >50% with inspiration. Pericardium There is no pericardial effusion. <Conclusion> Mild concentric left ventricular hypertrophy. LVEF is 60-65%. Aortic valve is mildly calcified. Mild tricuspid regurgitation. estimated pa pressure 40 mm Hg <ELECTRONICALLY SIGNED> By: Samy Escobar MD, FACC 12/10/19 1405 140 140 Samy Escobar MD, FACC /INF
== END ==
LOC: M.CRD 12:27
DX: Z01.818 Encounter for other preprocedural examination (principal); I08.3 Combined rheumatic disorders of mitral, aortic and tricuspid valves; I11.9 Hypertensive heart disease without heart failure; E11.9 Type 2 diabetes mellitus without complications; J44.9 Chronic obstructive pulmonary disease, unspecified; J96.10 Chronic respiratory failure, unspecified whether with hypoxia or hypercapnia; E78.00 Pure hypercholesterolemia, unspecified; Z79.4 Long term (current) use of insulin

== ENCOUNTER → 2020-03-04 | Outpatient (CLI) | payer MEDICARE, OTHER ==
[~2020-03-04] VITALS: Ht 170.2 cm; Wt 137.9 kg
[2020-03-04 09:33] LABS: ABSOLUTE BASOPHILS 0.1 thou/uL (0.0-0.2); ABSOLUTE EOSINOPHILS 0.5 thou/uL (0.0-0.7); ABSOLUTE LYMPHOCYTES 1.9 thou/uL (0.8-5.3); ABSOLUTE MONOCYTES 0.7 thou/uL (0.0-1.2); ABSOLUTE NEUTROPHILS 4.2 thou/uL (1.6-8.1); BASOPHILS 0.7 %; EOSINOPHILS 6.5 %; HEMOGLOBIN 14.3 gm/dL (14.0-18.0); LYMPHOCYTES 26.3 %; MCH 30.7 pg (26.0-34.0); MCHC 33.3 g/dL (28.0-37.0); MCV 92.1 fL (80.0-100.0); MPV 7.6 fl. (7.2-11.1); NUCLEATED RBCS 0 /100WBC; PLATELET COUNT* 262 thou/uL (150-400); POLYS 57.5 %; RBC 4.67 mil/uL (4.50-6.00); RDW-CV 13.6 % (10.5-14.5); WBC 7.3 thou/uL (4.0-11.0)
[2020-03-04 09:54] LABS: APTT 35.2 Seconds (25.0-31.3); INR 1.2; PROTIME 12.2 Seconds (9.20-11.50)
[2020-03-04 10:08] LABS: ALBUMIN 3.4 g/dL (3.4-5.0); CALCIUM 8.9 mg/dL (8.5-10.1); CREATININE 1.2 mg/dL (0.6-1.3); POTASSIUM 4.5 mmol/L (3.5-5.1); TOTAL BILIRUBIN 0.4 mg/dL (<0.1-1.0)
[2020-03-04 11:14] LABS: ESR (SEDRATE) 19 mm/hr (0-20)
== END ==
LOC: M.LAB 08:00 → M.PRE 03-15 07:59 → EDSTATUS 03-15 08:15 → M.PRE 03-15 08:55
PROVIDERS: ATTEND Orthopaedic Surgery
DX: Z01.818 Encounter for other preprocedural examination (principal); Z11.59 Encounter for screening for other viral diseases; M17.12 Unilateral primary osteoarthritis, left knee; J44.9 Chronic obstructive pulmonary disease, unspecified; E78.5 Hyperlipidemia, unspecified; E11.9 Type 2 diabetes mellitus without complications; I50.32 Chronic diastolic (congestive) heart failure; I11.9 Hypertensive heart disease without heart failure; Z96.652 Presence of left artificial knee joint